=== PATIENT | male | born 1990 | race Caucasian/White ===

== ENCOUNTER 2017-04-15 15:38 | Emergency (ER) | payer SELFPAY ==
[~2017-04-15] VITALS: Ht 180.3 cm; Wt 68.0 kg
[~2017-04-15 15:38] MED LIST: AMOXICILLIN500 MG PO; BACTRIM DS 8001 TA1 PO; BENADRYL25 MG PO; CARAFATE1 G1 PO; DILANTIN PO; DILANTIN100 MG PO; HYDROCODONE BIT1 T11 PO; KEFLEX500 MG PO; MACROBID100 M1 PO; MOTRIN800 MG PO; NORCO 325 MG-101 TAB PO; PEPCID20 MG PO; PREDNICOT20 MG PO; TOBREX OPHTH S2.5 ML OPH; Zofran4 MG PO
[2017-04-15] MEDS ORDERED: CYCLOBENZAPRINE10 MG PO ×2 (16:09→16:26)
[2017-04-15] MEDS ORDERED: NAPROSYN500 MG PO ×2 (16:09→16:26)
== END 2017-04-15 16:29 | disposition home or self-care (01) ==
LOC: ED 15:38
DX: S39.011A Strain of muscle, fascia and tendon of abdomen, initial encounter (principal); F17.200 Nicotine dependence, unspecified, uncomplicated; X50.0XXA Overexertion from strenuous movement or load, initial encounter; Y93.89 Activity, other specified; Y92.89 Other specified places as the place of occurrence of the external cause; Y99.8 Other external cause status

== ENCOUNTER 2017-04-25 14:05 | Emergency (ER) | payer SELFPAY ==
[~2017-04-25] VITALS: Ht 177.8 cm; Wt 65.8 kg
[~2017-04-25 14:05] MED LIST changes: +CYCLOBENZAPRINE10 MG PO; +NAPROSYN500 MG PO
== END 2017-04-25 16:32 | disposition home or self-care (01) ==
LOC: ED 14:05
DX: S01.111A Laceration without foreign body of right eyelid and periocular area, initial encounter (principal); S09.8XXA Other specified injuries of head, initial encounter; F17.200 Nicotine dependence, unspecified, uncomplicated; W45.8XXA Other foreign body or object entering through skin, initial encounter; Y93.89 Activity, other specified; Y92.89 Other specified places as the place of occurrence of the external cause; Y99.8 Other external cause status

== ENCOUNTER 2017-06-21 08:38 | Emergency (ER) | payer OTHER ==
[~2017-06-21] VITALS: Ht 177.8 cm; Wt 65.8 kg
[2017-06-21] MEDS ORDERED: NEURONTIN300 MG PO (08:49)
[2017-06-21] MEDS ORDERED: Motrin,Rufen800 MG PO (10:37)
== END 2017-06-21 11:07 | disposition home or self-care (01) ==
LOC: ED 08:38
DX: M54.5 Low back pain (principal); F17.200 Nicotine dependence, unspecified, uncomplicated; W05.0XXA Fall from non-moving wheelchair, initial encounter; Y93.89 Activity, other specified; Y92.89 Other specified places as the place of occurrence of the external cause; Y99.8 Other external cause status

== ENCOUNTER 2019-08-22 11:21 | Emergency (ER) | payer SELFPAY ==
[~2019-08-22] VITALS: Ht 177.8 cm; Wt 65.8 kg
[~2019-08-22 11:21] MED LIST changes: +Motrin,Rufen800 MG PO; +NEURONTIN300 MG PO
[2019-08-22] MEDS ORDERED: KENALOG 0.5% CR15 GM T (11:47)
== END 2019-08-22 11:54 | disposition home or self-care (01) ==
LOC: ED 11:21
DX: L25.9 Unspecified contact dermatitis, unspecified cause (principal); Z79.899 Other long term (current) drug therapy